=== PATIENT | female | born 1995 | race Caucasian/White ===

== ENCOUNTER 2020-03-27 20:08 | Emergency (ER) | payer OTHER ==
[~2020-03-27 20:08] MED LIST: BACTRIM DS TAB1 EACH PO; HYDROCODON-ACE1 EAC4 PO; MACROBID 100 M100 MG PO; PENVEE K 500 M500 MG PO
== END 2020-03-27 21:37 | disposition left against medical advice (07) ==
LOC: ER1 20:08
DX: R10.9 Unspecified abdominal pain (principal); Z53.21 Procedure and treatment not carried out due to patient leaving prior to being seen by health care provider

== ENCOUNTER 2021-03-03 01:46 | Emergency (ER) | payer OTHER ==
[2021-03-03] MEDS ORDERED: LODINE CAP 300300 MG PO (07:21)
== END 2021-03-03 09:57 | disposition home or self-care (01) ==
LOC: ER1 01:46
DX: S12.600A Unspecified displaced fracture of seventh cervical vertebra, initial encounter for closed fracture (principal); S22.019A Unspecified fracture of first thoracic vertebra, initial encounter for closed fracture; S22.029A Unspecified fracture of second thoracic vertebra, initial encounter for closed fracture; S22.039A Unspecified fracture of third thoracic vertebra, initial encounter for closed fracture; S22.049A Unspecified fracture of fourth thoracic vertebra, initial encounter for closed fracture; V89.2XXA Person injured in unspecified motor-vehicle accident, traffic, initial encounter
CPT/HCPCS: 72125; 72128; 99283

== ENCOUNTER 2021-06-26 06:03 | Emergency (ER) | payer OTHER ==
[~2021-06-26 06:03] MED LIST changes: +LODINE CAP 300300 MG PO
[2021-06-26 07:10] LABS: HEMOGLOBIN 12.3 gm/dl (12.3-15.3); RED BLOOD COUNT 4.55 M/UL (4.00-5.10); WHITE BLOOD COUNT 8.3 K/UL (4.5-11.0)
[2021-06-26 07:47] LABS: BUN/CREATININE RATIO 17 (0-10)
== END 2021-06-26 08:59 | disposition home or self-care (01) ==
LOC: ER1 06:03
PROVIDERS: Physician Assistant
DX: R07.9 Chest pain, unspecified (principal); Z87.442 Personal history of urinary calculi
CPT/HCPCS: 71045; 80053; 82550; 82553; 84484; 84703; 85025; 85379; 93005; 99285

== ENCOUNTER 2021-07-29 17:51 | Emergency (ER) | payer OTHER | END 2021-07-29 19:21 | disposition left against medical advice (07) | LOC: ER1 17:51 | DX: M54.2 Cervicalgia (principal); R20.0 Anesthesia of skin; Z88.5 Allergy status to narcotic agent | CPT/HCPCS: 72125; 99281 ==

== ENCOUNTER 2021-09-28 21:48 | Emergency (ER) | payer OTHER ==
[2021-09-28 23:36] LABS: RED BLOOD COUNT 4.33 M/UL (4.00-5.10); WHITE BLOOD COUNT 9.1 K/UL (4.5-11.0)
[2021-09-28 23:50] LABS: BUN/CREATININE RATIO 11 (0-10)
[2021-09-29] MEDS ORDERED: PEPCID40 MG PO (00:23)
== END 2021-09-29 00:30 | disposition home or self-care (01) ==
LOC: ER1 21:48
PROVIDERS: Physician Assistant
DX: O99.891 Other specified diseases and conditions complicating pregnancy (principal); R10.13 Epigastric pain; R10.10 Upper abdominal pain, unspecified; R10.816 Epigastric abdominal tenderness; Z87.442 Personal history of urinary calculi
CPT/HCPCS: 80053; 81001; 83690; 84702; 85025; 87086; 99284